=== PATIENT | female | born 1990 | race Two or more races ===

== ENCOUNTER 2017-09-13 00:19 | Emergency (ER) | payer SELFPAY ==
[~2017-09-13] VITALS: Ht 160 cm; Wt 50.0 kg
[2017-09-13] MEDS ORDERED: IBUPROFEN 600MG TABLET PO ONE (01:00)
[2017-09-13] MEDS ORDERED: IBUPROFEN 200MG TABLET ONE (01:19)
[2017-09-13 04:30] VITALS: BP 120/58
== END 2017-09-13 05:55 | disposition left against medical advice (07) ==
LOC: ER 00:19
DX: R07.89 Other chest pain (principal); M79.605 Pain in left leg; V49.9XXA Car occupant (driver) (passenger) injured in unspecified traffic accident, initial encounter; Y93.89 Activity, other specified; Y92.89 Other specified places as the place of occurrence of the external cause; Y99.8 Other external cause status
CPT/HCPCS: 71045; 99283